=== PATIENT | male | born 1935 | race Caucasian/White ===

== ENCOUNTER 2018-09-02 10:54 | Inpatient (IN) ==
--- NOTE | 2018-09-02 11:10 | EKG Report ---
Test Performed on : 09/02/2018 11:08:04 AM Test Reason : SOB Blood Pressure : / mmHG Vent. Rate : 084 BPM Atrial Rate : 084 BPM P-R Int : 230 ms QRS Dur : 088 ms QT Int : 388 ms P-R-T Axes : 046 055 044 degrees QTc Int : 458 ms Sinus rhythm. with 1st degree AV block. Otherwise normal ECG When compared with ECG of 25-NOV-2017 20:57, No significant change was found Unconfirmed Result
--- NOTE | 2018-09-02 11:46 | Diag Imaging Result Doc PS360 ---
EXAM: CHEST-2 VIEWS HISTORY: SOB TECHNIQUE: Chest two views COMPARISON: 06/02/2018 FINDINGS: Increased AP diameter to the chest. There are increased interstitial markings in the mid and lower left lung. These are somewhat more pronounced than on the prior study. The heart is nonenlarged. No change in the left portacatheter. No pneumothorax. There are small pleural effusions. IMPRESSION: 1.Emphysema 2.Small pleural effusions 3.Likely a combination of fibrosis and a small infiltrate in the mid and lower left lung Electronically signed by Thomas Merino 09/02/2018 11:44 AM
[2018-09-02] MEDS ORDERED: ZITHROMAX PO ONE (11:51)
[2018-09-02] MEDS ORDERED: ROCEPHIN 2 GM in NS 50 ML IV ONE (11:51)
[2018-09-02 12:13] LABS: BASO# 0.01 X1000 (0.0-0.2); BASO% 0.2 % (0.0-0.8); HEMATOCRIT 31.7 % (42.0-52.0); HEMOGLOBIN 10.2 g/dL (14.0-18.0); IMM GRAN# 0.02 X1000 (0.0-0.04); IMM GRAN% 0.4 % (0.0-0.5); LYMPH# 0.72 X1000 (1.2-3.4); LYMPH% 13.2 % (20.5-51.1); MCH 33.2 PG (27-31); MCHC 32.2 g/dL (33-37); MCV 103.3 FL (81-99); NEUT# 4.12 X1000 (1.4-6.5); NEUT% 75.2 % (42.2-75.2); PLT 56 X1000 (130-400); RBC 3.07 XMIL (4.7-6.1); WBC 5.47 X1000 (4.8-10.8)
[2018-09-02 12:18] LABS: INR 1.01; PROTIME 14.2 Seconds (11.0-16.0); PTT 27.8 Seconds (22.3-41.8)
[2018-09-02 12:24] LABS: ALB/GLOB RATIO 1.3; ALBUMIN 3.5 g/dL (3.5-5.0); CALCIUM 8.7 mg/dL (8.8-10.2); CREATININE 1.3 mg/dL (0.7-1.2); POTASSIUM 3.3 mmol/L (3.5-5.1); TOTAL BILIRUBIN 0.3 mg/dL (0.20-1.00); TOTAL PROTEIN 6.3 g/dL (6.3-8.3)
--- NOTE | 2018-09-02 13:54 | PROVIDER DOCUMENTATION ---
This chart was entered by Elizabeth Champagne Scribe, acting as scribe for Andrew Rao MD. HPI-Respiratory General - General Chief Complaint: Shortness of Breath Stated Complaint: SOB Time Seen by Provider: 09/02/18 11:05 Source: patient Allergies/Adverse Reactions: Patient Allergies Allergy/AdvReac Type Severity Reaction Status Date / Time No Known Allergies Allergy Verified 07/19/18 09:02 Home Medications: Home Medication List Medication Instructions Recorded Confirmed Last Taken Type Potassium Chloride E.r. [Klor-Con] 20 meq PO DAILY 07/13/18 07/19/18 07/17/18 History Rivaroxaban [Xarelto] 20 mg PO DAILY 07/13/18 07/19/18 07/17/18 History - History of Present Illness-Resp Nature of Presenting Problem: 83yom with hx colon, cancer, multiple myeloma, PE, L-sided chest tube with effusion c/o sob since last night. He reports he visits Dr. Davis weekly, and visited him on Wednesday for "breathing problems." He denies cough, fever, chills, nausea, vomiting, diarrhea, cp. The patient's daughter and are at bedside. Quality of Pain: reports: none Severity in ED: reports: mild Onset/Duration: reports: last night Timing: reports: still present, constant Cough Quality/Degree: reports: no cough Current Respiratory Medication Therapy: Initiated see nurses note Modifying Factors: improves with: nothing Associated Symptoms: reports: shortness of breath. denies: chest pain/soreness , cough, fever/chills Similar Symptoms Previously?: No Recently seen or treated by another doctor?: No Review of Systems - Adult - REVIEW OF SYSTEMS - ADULT Constitutional: denies: chills, fever Eyes: denies: discharge, dry eyes Ears, Nose, Mouth & Throat: denies: ear discharge, ear pain Cardiovascular: denies: chest pain, palpitations Respiratory: reports: shortness of breath. denies: cough Gastrointestinal: denies: abdominal pain, diarrhea, nausea, vomiting Genitourinary: denies: dysuria, hematuria Musculoskeletal: denies: back pain, muscle aches, muscle weakness Integumentary: reports: no symptoms reported Neurological: denies: dizziness/vertigo, headache/migraines Psychiatric: reports: no symptoms reported Endocrine: reports: no symptoms reported Hematologic/Lymphatic: reports: no symptoms reported Allergic/Immunologic: reports: no symptoms reported All Other Systems: Reviewed and Negative Past History - Adult - PAST MEDICAL HISTORY-ADULT Review of Records: reports: Old Records Reviewed, Nursing Assessment Review, Medications Reviewed Major Childhood Illnesses: reports: denies history Cardiovascular: reports: denies history Respiratory: reports: denies history Gastrointestinal: reports: GERD Obstetrical/Gynecological: reports: denies history Genitourinary: reports: dialysis, kidney disease Musculoskeletal: reports: denies history Neurological: reports: denies history Endocrine/Immune: reports: Lymphoma, other (Myelodysplasia) Other Conditions: reports: denies history - PRIOR SURGERIES/PROCEDURES Surgical/Procedure History: reports: hernia repair - IMMUNIZATION STATUS Childhood Immunizations: See Nurse Assessment Flu Vaccine: See Nurse Assessment - FAMILY HISTORY Family History: reviewed, not pertinent - SOCIAL HISTORY Smoking: other (former) Substance Use: denies Living Situation: family Physical Exam-General - PHYSICAL EXAM-ADULT Initial Vital Signs Reviewed: Yes - CONSTITUTIONAL General Appearance: alert, mild distress - EYES Eyes: PERRL/EOMI, pink conjunctivae - NECK Neck: non-tender, supple - RESPIRATORY Respiratory: decreased breath sounds, other (tachypneic) - CARDIOVASCULAR Cardiovascular: regular rate, rhythm, no murmur - GASTROINTESTINAL (ABDOMEN) Abdominal Exam: non tender, soft - MUSCULOSKELETAL Extremity: normal range of motion, non-tender, normal inspection, no pedal edema - SKIN Integumentary: normal color, warm/dry - NEUROLOGIC Neurologic: grossly normal, no motor/sensory deficits - PSYCHIATRIC Psych/Mental Status: normal mood/affect, normal thought content, normal thought process, oriented x 3 Progress - PLAN OF CARE/RESULTS Progress/Plan/Lab Results: Vital Signs - 8 hr 09/02/18 10:57 Temperature 98.5 F Pulse Rate 88 Respiratory Rate 26 H Blood Pressure 135/81 O2 Sat by Pulse Oximetry 95 Laboratory Results - last 24 hr 09/02/18 09/02/18 09/02/18 11:35 11:35 11:35 WBC 5.47 RBC 3.07 L Hgb 10.2 L Hct 31.7 L MCV 103.3 H MCH 33.2 H MCHC 32.2 L RDW Std Deviation 16.0 H Plt Count 56 L MPV Not Reportable Immature Gran % (Auto) 0.4 Neut % (Auto) 75.2 Lymph % (Auto) 13.2 L [place] % (Auto) 11.0 H Eos % (Auto) 0.0 Baso % (Auto) 0.2 Immature Gran # (Auto) 0.02 Neut # (Auto) 4.12 Lymph # (Auto) 0.72 L [place] # (Auto) 0.60 H Eos # (Auto) 0.00 Baso # (Auto) 0.01 PT INR PTT (Actin FS) Sodium 142 Potassium 3.3 L Chloride 105 Carbon Dioxide 23 L Anion Gap 14 BUN 26 H Creatinine 1.3 H Estimated GFR/1.73 m2 53 BUN/Creatinine Ratio 20 Glucose 74 Calculated Osmolality 287 Calcium 8.7 L Total Bilirubin 0.30 AST 9 L ALT 9 L Alkaline Phosphatase 79 Creatine Kinase 51 Troponin T Cng-E-Ikafmdyltgj Pept 1944 H Total Protein 6.3 Albumin 3.5 Globulin 2.8 Albumin/Globulin Ratio 1.3 09/02/18 09/02/18 11:35 11:35 WBC RBC Hgb Hct MCV MCH MCHC RDW Std Deviation Plt Count MPV Immature Gran % (Auto) Neut % (Auto) Lymph % (Auto) [place] % (Auto) Eos % (Auto) Baso % (Auto) Immature Gran # (Auto) Neut # (Auto) Lymph # (Auto) [place] # (Auto) Eos # (Auto) Baso # (Auto) PT 14.2 INR 1.01 PTT (Actin FS) 27.8 Sodium Potassium Chloride Carbon Dioxide Anion Gap BUN Creatinine Estimated GFR/1.73 m2 BUN/Creatinine Ratio Glucose Calculated Osmolality Calcium Total Bilirubin AST ALT Alkaline Phosphatase Creatine Kinase Troponin T < 0.010 Plr-D-Hozpykvjhyy Pept Total Protein Albumin Globulin Albumin/Globulin Ratio Orders Category Date Time Status Cardiac Monitoring DIRECTED Care 09/02/18 11:02 Active Oxygen Therapy- ED Nursing DIRECTED Care 09/02/18 11:02 Active Saline Loc NOW Care 09/02/18 11:02 Active CHEST-2 VIEWS [RAD] Stat Exams 09/02/18 11:02 Completed BLOOD CULTURE [BLDCUL] Stat Lab 09/02/18 12:40 Results CBC WITH ELECTRONIC DIFF [HEME] Stat Lab 09/02/18 11:35 Completed CK PROFILE [SP CHEM] Stat Lab 09/02/18 11:35 Completed COMPREHENSIVE METABOLIC PANEL [CHEM] Stat Lab 09/02/18 11:35 Completed PRO B-NATRIURETIC PEPTIDE Stat Lab 09/02/18 11:35 Completed PROTIME WITH INR [COAG] Stat Lab 09/02/18 11:35 Completed PTT [COAG] Stat Lab 09/02/18 11:35 Completed TROPONIN T Stat Lab 09/02/18 11:35 Completed Azithromycin [Zithromax] Med 09/02/18 11:51 Discontinued 500 mg PO NOW ONE CefTRIAXONE [Rocephin] 2 gm Med 09/02/18 11:51 Discontinued 0.9% Sodium Chloride Inj [Ns] 50 ml IV NOW CP/SOB/Palp >45 yrs of Age Stat Oth 09/02/18 11:02 Ordered EKG [EKG] Stat Ther 09/02/18 11:02 Draft CXR reveals lingular and LLL infiltrate. given immunosuppression I feel pt best initially treated inpatient. Rasheed'shaylee angulo/ (hospitalist service who agreed: Ginger). Result Diagrams: 09/02/18 11:35 09/02/18 11:35 - EKG 1 Time of EKG reading by physician:: 11:07 EKG Read and Signed by:: Andrew Rao EKG Interpretation (*Must complete 3 of following elements*): Abnormal Rate: 84 Rhythm: Sinus rhythm with 1st degree AV block Coulter: normal ST Wave: normal - XRAY 1 XRAY Study: Chest Impression: Abnormal (FINDINGS: Increased AP diameter to the chest. There are increased interstitial markings in the mid and lower left lung. These are somewhat more pronounced than on the prior study. The heart is nonenlarged. No change in the left portacatheter. No pneumothorax. There are small pleural effusions. IMPRESSION: 1.Emphysema 2.Small pleural effusions 3.Likely a combination of fibrosis and a small infiltrate in the mid and lower left lung) Departure - Departure Date of Disposition Decision: 09/02/18 Time of Disposition Decision: 13:54 DIAGNOSIS: Pneumonia Disposition: ADMITTED INPATIENT 09 Certified Medical Emergency: Emergent Condition: Stable Additional Freetext Instructions: ED Follow Up Instructions: You have been treated by a care provider in the Emergency Department. These instructions are being provided to you so you can have an understanding of how to care for yourself upon discharge. Upon discharge from the Emergency Department, you are responsible for making arrangements for follow-up care by a physician of your choice. Take all prescribed medications as directed. Return to the Emergency Department immediately for any new or worsening symptoms. You may call the Physician Referral phone number at [phone] to obtain a list of Physicians who are taking new patients. Referrals and Follow-Ups: Brayden Juarez DO [Primary Care Provider] - - Critical Care Note This patient required my direct & personal management of CC.: No Attestation - Physician/ MARA Attestation Patient care was provided by Advanced Practice Provider:: No The physician spent face to face time with patient:: Yes Advanced Practice Provider documentation review:: Supervising physician onsite and consulted in the evaluation and care of this patient. The physician did have a face to face encounter with the patient. This chart was documented by the indicated scribe, (Elizabeth Champagne, Yumiko) and accurately reflects the services I performed and decisions made by me, Andrew Rao MD, as attested by the provider's signature.
[2018-09-02] MEDS ORDERED: LASIX IV ONE (15:40)
[2018-09-02] MEDS ORDERED: TYLENOL PO PRN (16:57)
[2018-09-02] MEDS ORDERED: ZOFRAN IV PRN (16:57)
[2018-09-02 17:02] LABS: BILIRUBIN URINE NEGATIVE (NEGATIVE); BLOOD URINE NEGATIVE (NEGATIVE); COLOR YELLOW; GLUCOSE URINE NEGATIVE (NEGATIVE); KETONE URINE NEGATIVE (NEGATIVE); LEUKOCYTES URINE NEGATIVE (NEGATIVE); NITRITE URINE NEGATIVE (NEGATIVE); PROTEIN URINE NEGATIVE (NEGATIVE); SP GRAVITY URINE 1.007; TURBIDITY URINE CLEAR (CLEAR); UR EPITHELIAL CELLS <10 /HPF (<10); URINE BACTERIA NEGATIVE /HPF; URINE RBC <10 /HPF (<10); URINE SOURCE CLEAN CATCH; URINE WBC <10 /HPF (<10); UROBILINOGEN URINE NORMAL (NORMAL)
[2018-09-02] MEDS ORDERED: LENALIDOMIDE 5 MG PO SCH (17:30)
[2018-09-02 18:16] LABS: URINE SOURCE CLEAN CATCH
[2018-09-02 18:32] LABS: BILIRUBIN URINE NEGATIVE (NEGATIVE); BLOOD URINE NEGATIVE (NEGATIVE); COLOR STRAW; GLUCOSE URINE NEGATIVE (NEGATIVE); KETONE URINE NEGATIVE (NEGATIVE); LEUKOCYTES URINE NEGATIVE (NEGATIVE); NITRITE URINE NEGATIVE (NEGATIVE); PROTEIN URINE NEGATIVE (NEGATIVE); TURBIDITY URINE CLEAR (CLEAR); UROBILINOGEN URINE NORMAL (NORMAL)
[2018-09-02 18:34] LABS: UR EPITHELIAL CELLS <10 /HPF (<10); URINE BACTERIA NEGATIVE /HPF; URINE RBC <10 /HPF (<10); URINE WBC <10 /HPF (<10)
--- NOTE | 2018-09-02 20:15 | HISTORY AND PHYSICAL ---
PRIMARY CARE PHYSICIAN: Brayden Juarez DO. The patient also sees Dr. Khalil and Dr. Kenny. CHIEF COMPLAINT: Shortness of breath. HISTORY OF PRESENT ILLNESS: Mr. Bender is an 83-year-old, male, with a past medical history of multiple myeloma, currently under treatment with Dr. Khalil. He also has a history of colon cancer and myelodysplastic syndrome, as well as recurrent pleural effusions. He presented to the emergency room today with complaints of increasing shortness of breath over the past couple days. He saw Dr. Khalil in his office on Wednesday and then developed increasing shortness of breath and nonproductive cough. He denies any other respiratory symptoms besides nonproductive cough and shortness of breath. He denies any known fever. He denies chest pain, abdominal pain, nausea, vomiting, constipation, diarrhea. He denies any dysuria , hematemesis, hematochezia or melena. He states he has had some mild swelling of his lower extremities. Upon evaluation in the emergency room, his chest x-ray revealed small pleural effusions and a combination of fibrosis and small infiltrate in the mid and lower left lung as well as emphysema. His lab data revealed acute on chronic kidney injury with BUN 26, creatinine 1.3 , elevated proBNP at 1944. He has no known heart failure. Last echocardiogram was normal, done in July 2017. Mr. Bender will be admitted here at [facility] for further workup and evaluation regarding pleural effusion and possible pneumonia. PAST MEDICAL HISTORY: 1. Multiple myeloma. 2. History of colon cancer. 3. Myelodysplastic syndrome. 4. GERD. 5. Pernicious anemia. 6. Chronic kidney disease. 7. Prostate cancer. PAST SURGICAL HISTORY: 1. Left Pleur-Evac. 2. Cataract surgery. 3. Left hand surgery. 4. Colon resection. 5. Prostate. 6. Inguinal hernia repair. 7. Neck surgery. SOCIAL HISTORY: A remote smoker. He quit 20+ years ago. FAMILY HISTORY: Two brothers with prostate cancer. ALLERGIES: No known drug allergies. HOME MEDICATIONS: Waiting to be reconciled. PHYSICAL EXAMINATION: VITAL SIGNS: Temperature 98.5, heart rate 88, respiratory rate 26, blood pressure 135/81, and O2 saturation 95% on room air. GENERAL: This is a chronically ill-appearing, 83-year-old, male. He is in no acute distress. He answers questions appropriately. NEURO: He is alert and oriented. He is without focal deficits. Strength is equal bilaterally. HEENT: His head is atraumatic, normocephalic. Pupils are equal, round, reactive to light. Oral mucosa is mildly dry. NECK: Trachea is midline. There is no JVD. CHEST: Lung sounds with crackles at the bases. Respirations are unlabored. CARDIOVASCULAR: Rate and rhythm are regular. S1-S2 is noted. ABDOMEN: Soft and nontender. Bowel sounds are positive. EXTREMITIES: There is mild pedal edema bilaterally. Capillary refill is brisk. Pedal pulses 1+. SKIN: Warm, dry, intact. LABS: WBC 5.4, hemoglobin 10.2, hematocrit 31.7, platelets 56. Sodium 142, potassium 3.3, BUN 26, creatinine 1.3, calcium 8.7, AST 9, ALT 9. Troponin less than 0.01, proBNP 1944. IMAGING: Chest x-ray reveals emphysema, small pleural effusions, likely a combination of fibrosis and small infiltrate in the mid and lower left lung. EKG reveals sinus rhythm with first degree AV block. ASSESSMENT AND PLAN: 1. Possible pneumonia with recurrent small pleural effusion. This patient presented with shortness of breath. No acute respiratory distress. We will treat with Rocephin and azithromycin. He does have a small pleural effusion and appears mildly fluid volume overloaded. We will do one dose of Lasix for now and reevaluate need. We will do bronchodilator therapy and repeat chest x-ray in the morning. 2. Acute on chronic kidney injury. He is close to baseline. We will monitor fluid volume status closely and orders serial CMP. 3. History of colon cancer, aware. 4. Multiple myeloma. He is under current treatment with Dr. Khalil. We will consult Dr. Khalil. 5. Gastroesophageal reflux disease. Protonix. 6. Pernicious anemia, aware. 7. Deep venous thrombosis prophylaxis. He is chronically anticoagulated with Xarelto secondary to DVT history. Once medications are reconciled and we get his correct dose,and we will resume treatment. 8. Further recommendation evaluation to follow. Dictated by JOSE EDUARDO Porter for Jarrell Irwin MD Patient seen and examined by me face to face, all the laboratory, images and vitals signs were reviewed, patient presented to the emergency department with Shortness of breath for at least 3 -4 days, he has pleural effusion and possible pneumonia, decreased breath sounds at the bases with some rhonchi, will receive antibiotics, breathing treatment, O2, one dose of Lasix, ,the patient will be placed on telemetry, close monitoring, agree with the TIMERS INSPECTOR's assessment and plan, aJrrell Ortiz MD. cc: MD Sean Barclay MD [facility]. Boyle, MD [facility] INSANEOmid
[2018-09-02] MEDS: PROTONIX IV SCH (21:16)
[2018-09-02] MEDS: LIPITOR PO SCH (21:16)
[2018-09-02] MEDS: XARELTO PO SCH (21:16)
[2018-09-02] MEDS: XOPENEX NEB INH SCH (21:38)
[2018-09-03] MEDS: XOPENEX NEB INH SCH ×5 (03:40→21:53)
[2018-09-03 06:56] LABS: EOS# 0.02 X1000 (0.0-0.7); EOS% 0.7 % (0.0-10.0); HEMATOCRIT 26.8 % (42.0-52.0); HEMOGLOBIN 8.7 g/dL (14.0-18.0); LYMPH# 0.74 X1000 (1.2-3.4); LYMPH% 27.1 % (20.5-51.1); MCH 33.5 PG (27-31); MCHC 32.5 g/dL (33-37); MCV 103.1 FL (81-99); MONO# 0.36 X1000 (0.11-0.59); MONO% 13.2 % (1.7-9.3); NEUT# 1.61 X1000 (1.4-6.5); PLT 45 X1000 (130-400); RDW 16.2 % (11.5-14.5); WBC 2.73 X1000 (4.8-10.8)
[2018-09-03 07:10] LABS: ALBUMIN 2.7 g/dL (3.5-5.0); CALCIUM 8.3 mg/dL (8.8-10.2); CREATININE 1.5 mg/dL (0.7-1.2); POTASSIUM 3.1 mmol/L (3.5-5.1); TOTAL BILIRUBIN 0.29 mg/dL (0.20-1.00); TOTAL PROTEIN 5.3 g/dL (6.3-8.3)
[2018-09-03 07:20] LABS: LYMPHS 26 % (21-51); MONO 18 % (1-9); SEGS 56 % (42-75)
[2018-09-03 07:30] LABS: TSH 3.33 uIUmL (0.27-4.20)
--- NOTE | 2018-09-03 08:33 | Diag Imaging Result Doc PS360 ---
CHEST-PORTABLE - 09/03/2018 INDICATION: Pneumonia COMPARISON: 09/02/2018 FINDINGS: Stable left chest port. Heart size remains normal. Lung volumes are lower. Stable to slight worsening bibasilar pleural effusions. Grossly stable mild patchy infiltrates or areas of scarring in the lung bases bilaterally, particularly on the left side where there is clearly a lot of pulmonary scarring. IMPRESSION: Slight worsening in the small pleural effusions and faint bibasilar infiltrates. Electronically signed by Silvano Goldman 09/03/2018 8:31 AM
[2018-09-03] MEDS: KLOR-CON PO SCH (08:50)
[2018-09-03] MEDS: XARELTO PO SCH ×2 (08:50→14:46)
[2018-09-03] MEDS ORDERED: KLOR-CON PO ONE (08:53)
[2018-09-03] MEDS: ZITHROMAX 500 MG/NS 500 MG/250 ML IVPB IV SCH (09:23)
[2018-09-03] MEDS: NS NEB INH SCH ×2 (09:54→15:33)
[2018-09-03] MEDS: ROCEPHIN 1 GM in NS 50 ML IV SCH (11:48)
--- NOTE | 2018-09-03 11:54 | HEMO/ONC CONSULTATION ---
DATE: 09/03/2018 CONSULTATION REQUESTED BY: Hospitalist Service. REASON FOR CONSULTATION: Multiple myeloma, patient known. HISTORY OF PRESENT ILLNESS: Mr. Bender is an 83-year-old, male, who is known to us as Dr. Khalil is currently treating him for multiple myeloma, who has been admitted to the hospital with pneumonia/pleural effusions. The patient was already having some dyspnea over the week, and it has worsened, making him present to the emergency department. A chest x-ray has revealed small pleural effusions and an infiltrate in his left mid lung. Patient is getting Kyprolis, dexamethasone and Revlimid. He just recently completed his fourteenth cycle of Kyprolis on 09/01/2018. He is taking Revlimid 5 mg every other day. His most recent bone marrow biopsy has shown stable to improved plasma cell population. The patient also getting red blood cell support with Aranesp. He is complaining of some muscle spasms, but otherwise is feeling well. He does have a history of a left lower extremity DVT back in February 2018. He is currently taking Xarelto. PAST MEDICAL HISTORY: 1. Multiple myeloma. 2. Myelodysplastic syndrome, exacerbated by chronic renal insufficiency. 3. Stage II colon cancer. Adenocarcinoma. No current evidence of disease. 4. Gastroesophageal reflux disease. 5. Chronic kidney disease. 6. History of prostate cancer. PAST SURGICAL HISTORY: 1. Left Pleur-evac placement. 2. Cataract surgery. 3. Left hand surgery. 4. Colon resection. 5. Prostate biopsy. 6. Inguinal hernia repair. 7. Previous neck surgery. SOCIAL HISTORY: Patient quit smoking 20+ years ago. He denies any current tobacco, alcohol or illicit drug use. FAMILY HISTORY: Has 2 brothers who have a history of prostate cancer. All else is noncontributory. REVIEW OF SYSTEMS: Twelve point review of systems has been completed and is negative, except for as expressed in the HPI. PHYSICAL EXAMINATION: Vital Signs: Temperature 98.2 degrees, heart rate 72, respirations 18, blood pressure 116/60, O2 saturation 95% on room air. General: This is a male lying in a hospital bed. He has a daughter at bedside. He is in no acute distress at this time. Head: Head normocephalic, atraumatic. Eyes: Pupils equal, round, reactive. Ears, nose, throat, neck: Mouth: Oral mucosa appears to be normal. Gross auditory acuity is diminished. Cardiovascular: S1, S2 heard. No murmurs, gallops, rubs appreciated. Respiratory: Chest is clear. No respiratory effort. There is really no rales or rhonchi noted. Gastrointestinal: Abdomen is soft. Positive bowel sounds. Musculoskeletal: No bony abnormalities. Extremities: Patient does have some trace bilateral extremity edema noted. Neurologic: Patient is alert and oriented with no focal motor deficits noted at this time. LABS AND STUDIES: White blood cells 2.73, hemoglobin 8.7, platelet count 45. Sodium 140, potassium 3.1, chloride 103, CO2 26. BUN 25, creatinine 1.5, glucose 96. Chest x-ray shows small pleural effusions and faint bibasilar infiltrates. ASSESSMENT AND PLAN: 1. Multiple myeloma. Patient has now completed cycle 14 of Kyprolis /dexamethasone. Patient is taking 5 mg of Revlimid every other day. Recommend holding Revlimid at this time given the patient's acute issues. We will have the patient follow up and discuss reinitiating treatment once he is better. 2. Pneumonia. Continue current management which includes intravenous antibiotics with azithromycin and ceftriaxone. Oxygen support as needed. Nebulizer treatments. 3. Deep vein thrombosis, left lower extremity. Patient was diagnosed with a deep vein thrombosis back in February 2018. He has been on Xarelto 20 mg since that time. He has now completed close to 6 months of therapy. We recommend that we decrease the Xarelto dose down to 10 mg daily. He will need to continue Xarelto while he is in the hospital. 4. Chronic kidney disease. The patient's baseline creatinine is around 1.3. He is close to his baseline at this time. Continue to monitor. 5. History of colon cancer. Aware. No evidence of recurrence at this time. 6. Leg cramps. Potassium is low. Replete per primary team. We will make sure that his other electrolytes are checked and then repleted. Thank you for consulting us on Mr. Bender while he is here at [facility]. I will continue to follow him and adjust our treatment plan per his hospital course. Dictated by DERIC Hobbs for Sean Khalil MD cc: Sean Khalil MD
[2018-09-03] MEDS ORDERED: MAGNESIUM SULFATE 2 GM/S.W.I. 2 GM/50 ML IVPB IV ONE (13:05)
--- NOTE | 2018-09-03 14:14 | PROGRESS NOTE ---
DATE: 09/03/2018 SUBJECTIVE: The patient is lying comfortably in bed. Occupational Therapy and Physical Therapy have been consulted already. He is not complaining of chest pain, mild shortness of breath, some leg cramps. He has history of DVT as well in left lower extremity, and Hematology/Oncology Department has decreased the dose of Xarelto from 20 mg to 10 mg because it looks like he completed the 6 months of therapy already. Admitted yesterday due to shortness of breath which is happening mostly with physical activity. X-ray showed mild pleural effusion bilaterally located at the bases. He received Lasix yesterday, and also he received Lasix at home p.o. the day prior to admission. He started requiring oxygen, and the oxygen saturation is 96% on room air. His magnesium level is also low, and I will replace it. OBJECTIVE: Vital signs: Temperature is 98.4, pulse 87, respiratory rate 24, blood pressure 130/61, oxygen saturation 96% on room air. HEENT: Head is atraumatic and normocephalic, PERRLA. Neck: Supple. No JVD. No masses. Central trachea. Chest: Decreased breath sounds at the bases with some crepitans on the left side, some rales as well. Abdomen: Soft, nontender and nondistended. No hepatosplenomegaly. Extremities: Trace pedal edema. No clubbing. No cyanosis. Neurologic: The patient is alert and oriented x3. No focal deficits. DIAGNOSTIC DATA: WBC is 2.7, hemoglobin 8.7, hematocrit 26.8, platelets 45. Sodium is 140, potassium 3.1, chloride 103, bicarbonate 26, BUN is 25, creatinine 1.5, glucose 96, calcium 8.3, magnesium 1.4. ASSESSMENT AND PLAN: 1. Shortness of breath with questionable pneumonia on the left side with recurrent small pleural effusion. This patient received a dose of Lasix yesterday IV, and also he received as needed Lasix treatment at home the day before admission. His creatinine increased a little bit compared with his baseline. Today he is not having shortness of breath, and he is on room air. Oxygen saturation is stable. We will continue with antibiotics. We will continue with breathing treatment as well. 2. Acute on chronic kidney injury, mild. I will hold his Lasix treatment today, and I will reevaluate this in the morning. 3. History of colon cancer. Aware. Followed by Dr. Khalil. 4. Multiple myeloma. This patient has now completed cycle 14 of treatment, and also this patient is taking 5 mg of Revlimid every other day that now has been on hold due to this patient's acute problems. We will continue to monitor for now. 5. Possible left lower lobe pneumonia and/or pulmonary scarring. Continue with antibiotics. 6. Gastroesophageal reflux disease. Continue with Protonix. 7. Left lower extremity deep venous thrombosis, already treated with Xarelto 20 mg p.o. daily and has been decreased to 10 because it looks like he completed treatment already. 8. Hypokalemia. I will replace. 9. Hypomagnesemia. I will replace the magnesium as well. cc: Jarrell Irwin MD
[2018-09-03] MEDS ORDERED: XARELTO PO SCH (15:00)
[2018-09-03] MEDS: PROTONIX IV SCH (17:24)
[2018-09-03] MEDS: LIPITOR PO SCH (22:02)
[2018-09-04] MEDS: XOPENEX NEB INH SCH ×4 (03:10→22:07)
[2018-09-04 06:38] LABS: EOS# 0.04 X1000 (0.0-0.7); EOS% 1.6 % (0.0-10.0); HEMATOCRIT 27.5 % (42.0-52.0); HEMOGLOBIN 8.9 g/dL (14.0-18.0); LYMPH# 0.77 X1000 (1.2-3.4); MCH 33.2 PG (27-31); MCHC 32.4 g/dL (33-37); MCV 102.6 FL (81-99); MONO# 0.38 X1000 (0.11-0.59); MONO% 14.8 % (1.7-9.3); NEUT# 1.38 X1000 (1.4-6.5); NEUT% 53.6 % (42.2-75.2); PLT 43 X1000 (130-400); RBC 2.68 XMIL (4.7-6.1); RDW 16.2 % (11.5-14.5); WBC 2.57 X1000 (4.8-10.8)
[2018-09-04 06:50] LABS: ALBUMIN 2.5 g/dL (3.5-5.0); CALCIUM 7.9 mg/dL (8.8-10.2); CREATININE 1.2 mg/dL (0.7-1.2); POTASSIUM 3.3 mmol/L (3.5-5.1); TOTAL BILIRUBIN 0.44 mg/dL (0.20-1.00); TOTAL PROTEIN 5.1 g/dL (6.3-8.3)
[2018-09-04] MEDS ORDERED: LASIX IV ONE ×3 (07:16→18:00)
--- NOTE | 2018-09-04 07:22 | Diag Imaging Result Doc PS360 ---
CHEST-PORTABLE - 09/04/2018 INDICATION: dyspnea COMPARISON: 09/03/2018 FINDINGS: Stable left chest port. Stable bilateral central and basilar infiltrates. Stable small pleural effusions. Stable volume loss of the left lung. Heart size remains normal. IMPRESSION: No change from prior. Electronically signed by Silvano Goldman 09/04/2018 7:20 AM
[2018-09-04] MEDS: PERIDEX MT SCH ×2 (08:09→22:41)
[2018-09-04] MEDS: KLOR-CON PO SCH (08:09)
[2018-09-04] MEDS: ZITHROMAX 500 MG/NS 500 MG/250 ML IVPB IV SCH (08:10)
[2018-09-04] MEDS ORDERED: KLOR-CON PO ONE (09:10)
--- NOTE | 2018-09-04 10:05 | Diag Imaging Result Doc PS360 ---
CHEST-2 VIEWS - 09/04/2018 9:43 AM INDICATION: dyspnea COMPARISON: 5:48 AM FINDINGS: There is no change from prior. IMPRESSION: No change from prior. Electronically signed by Silvano Goldman 09/04/2018 10:02 AM
--- NOTE | 2018-09-04 10:06 | Diag Imaging Result Doc PS360 ---
LAT. DECUBITUS VIEW-LEFT - 09/04/2018 INDICATION: eval effusion TECHNIQUE: COMPARISON: Chest x-rays from earlier today FINDINGS: There is left-sided pleural thickening stable from prior exams. No free flowing pleural effusion. IMPRESSION: No free flowing pleural effusion. Electronically signed by Silvano Goldman 09/04/2018 10:04 AM
--- NOTE | 2018-09-04 10:07 | Diag Imaging Result Doc PS360 ---
LAT. DECUBITUS VIEW-RIGHT - 09/04/2018 INDICATION: eval effusion TECHNIQUE: COMPARISON: None FINDINGS: There is a small free-flowing right pleural effusion. This measures about 3 cm in depth maximally. IMPRESSION: Small free-flowing right pleural effusion. Electronically signed by Silvano Goldman 09/04/2018 10:05 AM
[2018-09-04] MEDS: ROCEPHIN 1 GM in NS 50 ML IV SCH (12:27)
--- NOTE | 2018-09-04 13:55 | PROGRESS NOTE ---
DATE: 09/04/2018 SUBJECTIVE: This patient is still complaining of generalized weakness, some abdominal pain, some acid reflux, and some leg cramps. Family members at the bedside. Pulmonary Department has been consulted. We did multiple x-rays to evaluate his pleural effusion. He has receive Lasix IV today. He is not having shortness of breath at this moment but he feels really tired. OBJECTIVE: Vital Signs: Temperature 97.5 degrees, pulse 78, respiratory rate 24, blood pressure 110/66, oxygen saturation 96 on room air. HEENT: Head normocephalic. No trauma. PERRLA. Neck: Supple. No JVD. No masses. Central trachea. Chest: Decreased breath sounds at the bases with crepitations bilaterally and some crackles on the left side. Abdomen: Soft, nontender, nondistended. No hepatosplenomegaly. Extremities: Trace pedal edema. No clubbing. No cyanosis. Neurological: The patient is alert and oriented x3. No focal deficits. LABORATORY: WBC 2.5, hemoglobin 8.9, hematocrit 27.5, platelets 43,000. Sodium 138, potassium 3.3, chloride 102, bicarbonate 24, BUN 14, creatinine 1.2, glucose 99, calcium 7.9, albumin 2.5. ASSESSMENT AND PLAN: 1. Shortness of breath with questionable pneumonia on the left side, recurrent pleural effusion. The patient received a dose of IV Lasix x2. He is not complaining too much of shortness of breath but he feels tired. He has been coughing on and off. 2. Acute on chronic kidney injury, mild. It looks like this is his baseline. We will continue to monitor. Probably tomorrow the BUN and creatinine will increased due to the Lasix treatment. 3. History of colon cancer. Aware. Followed by Dr. Khalil. 4. Multiple myeloma. This patient has now completed cycle 14 of treatment and also this patient is taking 5 mg of Revlimid every other day. That now has been on hold due to this patient's acute problems. Will continue to monitor. 5. Possible left lower lobe pneumonia and/or pulmonary scarring. Continue with antibiotics. 6. Hypokalemia. He already received a dose of potassium chloride in the morning and I will repeated in the afternoon. Probably the potassium has been low due to the furosemide treatment. 7. Gastroesophageal reflux disease. Continue with PPIs. Since this patient has been getting some acid reflux, I will increase it to twice a day. 8. Left lower extremity deep vein thrombosis. Already treated with Xarelto 20 mg p.o. daily. That has been decreased to 10 mg p.o. daily because it looks like this patient has already completed treatment. These changes have been done by Hematology/Oncology Department. We will continue to monitor. 9. Thrombocytopenia, which is chronic. Stable. Will monitor. 10. Bilateral lower extremity cramps. Likely secondary to hypokalemia. I will replace the potassium. 11. Generalized weakness. Continue physical therapy. cc: Jarrell Irwin MD
[2018-09-04] MEDS: XARELTO PO SCH (15:02)
[2018-09-04] MEDS: PROTONIX IV SCH (15:05)
[2018-09-04] MEDS: NS NEB INH SCH (15:41)
[2018-09-04] MEDS ORDERED: KLOR-CON PO SCH (17:00)
--- NOTE | 2018-09-04 20:40 | PULMONOLOGY CONSULTATION ---
DATE: 09/04/2018 REQUESTING PHYSICIAN: Dr. Miles. REASON FOR CONSULTATION: Shortness of breath and pulmonary edema. HISTORY OF PRESENT ILLNESS: Mr. Bender is an 83-year-old white male with history of asbestos exposure, multiple myeloma, myelodysplastic syndrome, immunoglobulin deficiency, with a complex left-sided pleural effusion which required a PleurX catheter for drainage with subsequent resolution. The patient developed a right-sided pleural effusion and underwent a thoracentesis in July 2017 which was transudative in character. He developed a clot in his left leg and a V/Q scan in February 2018 was consistent with a pulmonary embolism, and he has been on Xarelto since that time. He has had chronic shortness of breath and fatigue that has significantly worsened on Wednesday and he was admitted to the hospital for additional evaluation and treatment. Chest x-ray reveals increase in basilar infiltrates/effusions. The patient reports that he had an immunoglobulin infusion on . He reports some improvement in his symptoms. He denies fevers or chills. He has no significant sputum production. PAST MEDICAL HISTORY: Problem list: 1. Multiple myeloma as per above. 2. Myelodysplastic syndrome. 3. Chronic renal insufficiency. 4. Left-sided pleural effusion as per above requiring a PleurX catheter. 5. Transudative pleural effusion on the right as per above. 6. History of prostate cancer. 7. Stage II colon cancer status post resection without evidence of recurrence. 8. Left hand surgery. 9. Prostate biopsy. 10. Inguinal hernia repair. 11. Previous neck surgery. SOCIAL HISTORY: The patient has limited tobacco history. He smoked 3/4 of pack for 10 years. 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 No exposure to tuberculosis. FAMILY HISTORY: Positive for Alzheimer disease, heart disease. PHYSICAL EXAMINATION: General: Reveals a well-developed, well-nourished white male resting comfortably in his bed and in no distress. Vital Signs: BP 103/59, heart rate 78, respiratory rate 20, oxygen saturation 95% on room air. HEENT: Pupils are equal and reactive. Oropharynx is clear. Neck: Supple. Chest: Reveals mild prolonged expiratory phase. He has 1+ presacral edema. Cardiac: S1, S2. Abdomen: Soft. Extremities: Without edema. Neurologic: Cranial nerves 2-12 are grossly intact. LABORATORIES: Decubitus x-ray on the right reveals a small to moderate effusion which appears to be free flowing to the mid thorax measuring approximately 3 cm. No effusion on the left. White blood count 2.57, hemoglobin 8.9, platelet count 43,000. Chemistry: Sodium 138, potassium 3.3, chloride 102, bicarbonate 24, BUN 14, creatinine 1.2. IMPRESSION: An 83-year-old with right-sided pleural effusion, dyspnea, fatigue, immunoglobulin deficiency status post recent replacement as outlined in the HPI, multiple myeloma, with myelodysplastic syndrome. The patient likely has adhesions in the left hemithorax preventing an effusion formation. He does develop effusions on the right side which were previously transudative in nature. I would recommend an attempt at diuresis and an echocardiogram to re- evaluate his pulmonary arterial pressures along with his left ventricular function. His current exacerbation may have been triggered by the immunoglobulin replacement. The patient's nursing orders currently recommend encourage patient to push p.o. liquids. This has been discontinued. He did recently have an immunoglobulin infusion and a post infusion level will be checked. RECOMMENDATIONS: 1. Additional Lasix today as tolerated with followup BUN and creatinine. 2. Check an echocardiogram. 3. Continue anticoagulation for history of deep vein thrombosis and pulmonary emboli. 4. Discontinue antibiotics with clearing of x-ray. cc: Mitchell Kenny MD
[2018-09-04] MEDS: LIPITOR PO SCH (22:41)
[2018-09-05] MEDS: PROTONIX IV SCH ×2 (01:41→15:37)
[2018-09-05] MEDS: XOPENEX NEB INH SCH ×4 (03:57→21:40)
[2018-09-05 06:30] LABS: EOS# 0.13 X1000 (0.0-0.7); HEMATOCRIT 31.7 % (42.0-52.0); HEMOGLOBIN 10.2 g/dL (14.0-18.0); LYMPH# 1.15 X1000 (1.2-3.4); LYMPH% 35.7 % (20.5-51.1); MCH 33.1 PG (27-31); MCHC 32.2 g/dL (33-37); MCV 102.9 FL (81-99); MONO# 0.49 X1000 (0.11-0.59); MONO% 15.2 % (1.7-9.3); NEUT# 1.45 X1000 (1.4-6.5); NEUT% 45.1 % (42.2-75.2); PLT 53 X1000 (130-400); RBC 3.08 XMIL (4.7-6.1); RDW 15.9 % (11.5-14.5); WBC 3.22 X1000 (4.8-10.8)
[2018-09-05 06:47] LABS: CALCIUM 8.3 mg/dL (8.8-10.2); CREATININE 1.3 mg/dL (0.7-1.2); POTASSIUM 3.9 mmol/L (3.5-5.1); TOTAL BILIRUBIN 0.34 mg/dL (0.20-1.00); TOTAL PROTEIN 6.1 g/dL (6.3-8.3)
--- NOTE | 2018-09-05 06:48 | Diag Imaging Result Doc PS360 ---
EXAM: CHEST-PORTABLE HISTORY: abnormal exam TECHNIQUE: Portable chest single view COMPARISON: 09/04/2018 FINDINGS: No change in the left-sided portacatheter. There is volume loss to the left hemithorax similar to the prior exam. Mild increased interstitial markings in the lower left lung and lower right lung. The markings in the right lung base are slightly more pronounced. Small right pleural effusion with left pleural thickening. No cardiomegaly. IMPRESSION: Mild worsening in the right-sided infiltrates Electronically signed by Thomas Merino 09/05/2018 6:46 AM
[2018-09-05 06:52] LABS: MAGNESIUM 1.9 mg/dL (1.5-2.7); PHOSPHORUS 3.2 mg/dL (2.7-4.5)
[2018-09-05] MEDS: PERIDEX MT SCH ×2 (10:23→21:58)
[2018-09-05] MEDS: KLOR-CON PO SCH (10:23)
[2018-09-05] MEDS: ZITHROMAX 500 MG/NS 500 MG/250 ML IVPB IV SCH (10:26)
[2018-09-05] MEDS: ROCEPHIN 1 GM in NS 50 ML IV SCH (12:15)
--- NOTE | 2018-09-05 13:06 | PROGRESS NOTE ---
DATE: 09/05/2018 SUBJECTIVE: This patient states that he is feeling better. He is still complaining of mild shortness of breath with physical activity. X-ray showed a mild worsening in the right-sided infiltrates. Echocardiogram has been requested, but is pending at this moment. Will continue with the same management. Pulmonary department on board. Probably this patient can be discharged in the next 24 to 48 hours. OBJECTIVE: Vital Signs: Temperature 97.6 degrees, pulse 77, respiratory rate 24, blood pressure 111/66, oxygen saturation 95% on room air. HEENT: Head normocephalic. No trauma. PERRLA. Neck: Supple. No JVD. No masses. Central trachea. Chest: Decreased breath sounds at the bases with some crepitus bilaterally at the bases as well. Abdomen: Soft, nontender, nondistended. No hepatosplenomegaly. Extremities: Trace pedal edema. No clubbing. No cyanosis. Neurological: The patient is alert and oriented x3. No focal deficits. LABORATORY DATA: WBC 3.2, hemoglobin 10.2, hematocrit 31.7, platelets 53,000. Sodium 136, potassium 3.9, chloride 98, bicarbonate 25, BUN 13, creatinine 1.3, glucose 113, calcium 8.3, albumin 6. ASSESSMENT AND PLAN: 1. Shortness of breath with questionable pneumonia at the bases, recurrent pleural effusion. The patient received a dose of intravenous Lasix yesterday. He is not complaining of shortness of breath today, but he feels a little bit tired. Mostly the shortness of breath is with some physical activity, but compared with admission, he is feeling better. 2. Acute on chronic kidney injury, mild. It looks like this is his baseline. Will continue to monitor. 3. History of colon cancer, aware. Followed by Dr. Khalil. 4. Multiple myeloma. This patient has now completed cycle 14 of treatment and also this patient is taking 5 mg of Revlimid every other day that now has been stopped due to this patient's acute problems. 5. Possible bilateral lower lobe pneumonia and/or pulmonary scarring. Continue with antibiotics. Once the x-ray is clear, will stop the antibiotics. 6. Hypokalemia, resolved. 7. Gastroesophageal reflux disease. Continue with proton pump inhibitors. 8. Left lower extremity deep venous thrombosis. He already has been treated with Xarelto 20 mg p.o. daily and that has been decreased to 10 mg p.o. daily because it looks like he already completed his treatment. Dose changes have been done by Hematology/Oncology Department. Will continue to monitor and follow with recommendations. 9. Thrombocytopenia. This is chronic, stable. Will monitor. 10. Bilateral lower extremity cramps likely secondary to hypokalemia. Today, he is not complaining of any abnormality at the level of the lower extremities. Will continue to monitor. 11. Generalized weakness. Continue physical therapy. 12. Immunoglobulin deficiency. Pending immunoglobulin results. cc: Jarrell Irwin MD
[2018-09-05] MEDS: SODIUM CHLORIDE 0.9% INJ SCH (15:37)
[2018-09-05] MEDS: XARELTO PO SCH (15:37)
--- NOTE | 2018-09-05 16:22 | ECHO REPORT ---
ORDER DATE: 09/05/2018 INTERPRETING PHYSICIAN: Dr. Meyers REQUESTING PHYSICIAN: CLINICAL INDICATIONS: This is an 83-year-old male with multiple myeloma, pleural effusion, colon cancer, chemotherapy. M-MODE MEASUREMENTS: Right ventricle: cm. Left ventricle end diastole: 4.1 cm. Left ventricle end systole: 3.1 cm. Posterior wall: 1.1 cm. Interventricular septum: 1.1 cm. Left atrium: 4.0 cm. Aortic root: 3.7 cm. SUMMARY OF 2-DIMENSIONAL IMAGIN. The study is difficult. 2. Left ventricular systolic function appears to be at the lower limits of normal. Ejection fraction is estimated at 56%. No definite wall motion abnormality is noted; however, the study is difficult. 3. Inferior vena cava is not dilated. 4. Tricuspid valve showed mild degree of regurgitation. 5. Pulmonary pressure appears to be 29 mmHg. 6. Pulmonic valve looks normal. Color flow mapping is unremarkable. 7. Mitral valve shows mild degree of regurgitation. 8. Pulse wave Doppler of mitral inflow shows reversal of the E and the A ratio, the ratio is 0.5. 9. Tissue Doppler of septal and lateral mitral annulus averages 6.5 cm. 10.There is a question of impaired left ventricular relaxation. 11.Pulmonary venous flow is normal. 12.Aortic valve shows mild degree of thickening of the cusps with normal opening. There is no stenosis. There is no regurgitation. 13.There is no pericardial effusion, mass, or thrombus. 14.The atria appear to be normal. Clinical correlation is recommended. cc: MD Mitchell Rodriguez MD
--- NOTE | 2018-09-05 18:24 | Diag Imaging Result Doc PS360 ---
EXAM: CT MAXILLOFACIAL(SINUS) W/O CO - 09/05/2018 HISTORY: sinusitis TECHNIQUE: CT maxillofacial without contrast COMPARISON: None. FINDINGS: There is mucosal thickening along the posterior medial right maxillary sinus. The remainder of the paranasal sinuses appear clear. There is no air-fluid level identified. IMPRESSION: Mucosal thickening along posterior medial right maxillary sinus. The remaining of the paranasal sinuses appear clear. Electronically signed by Cristhian Cortez 09/05/2018 6:22 PM
[2018-09-05] MEDS: ZYVOX PO SCH (19:13)
[2018-09-05] MEDS: MAXIPIME 2 GM in NS 100 ML IV SCH (19:13)
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
[2018-09-05] MEDS: LIPITOR PO SCH (21:58)
--- NOTE | 2018-09-06 01:17 | PULMONOLOGY PROGRESS NOTE ---
DATE: 09/05/2018 SUBJECTIVE: The patient reports he feels better. He denies shortness of breath today. He does report fatigue. He has not had any sputum production during this hospitalization. OBJECTIVE: The patient has been afebrile this entire hospital stay. Blood pressure 106/81, heart rate 73, respiratory rate 16, oxygen saturation 100% on room air.HEENT: Pupils are equal and reactive. Oropharynx is clear. Neck: Supple. Chest: Reveals decreased breath sounds left base. Cardiac: S1-S2. Abdomen: Soft and without hepatosplenomegaly. Extremities: Without edema. LABORATORIES: CT scan of the sinuses are consistent with chronic sinusitis of the right maxillary sinus. Echocardiogram reveals normal LV function, mild mitral regurgitation, possible component of impaired left ventricular relaxation with diastolic dysfunction. X-ray which is a portable exam reveals stable volume loss in the left hemithorax. The radiologist indicates increasing right-sided infiltrates but this is a portable exam and likely related to technique. IMPRESSION: An 83-year-old with pleural effusions, fatigue, immunoglobulin deficiency, myelodysplastic syndrome with multiple myeloma. Clinically he is improving. The patient has chronic changes in the left hemithorax associated with prior exudative effusion requiring drainage. Prior evaluations of effusions on the right side were transudative in nature. The patient has had no signs or symptoms to suggest an active pneumonia despite radiographic reading. He does have a pleural effusion which has been present intermittently in the past. RECOMMENDATIONS: 1. Continue anticoagulation for history of deep vein thrombosis. 2. Two-view chest x-ray tomorrow. 3. Antibiotics per infectious disease but I am not convinced that he has an active infection. cc: Mitchell Kenny MD
[2018-09-06] MEDS: XOPENEX NEB INH SCH ×4 (03:45→22:50)
[2018-09-06] MEDS: PROTONIX IV SCH ×2 (05:55→17:12)
[2018-09-06] MEDS: ZYVOX PO SCH ×2 (05:55→17:12)
[2018-09-06] MEDS: MAXIPIME 2 GM in NS 100 ML IV SCH ×2 (06:09→17:12)
[2018-09-06 06:14] LABS: CALCIUM 7.4 mg/dL (8.8-10.2); CREATININE 1.2 mg/dL (0.7-1.2); POTASSIUM 4.5 mmol/L (3.5-5.1)
--- NOTE | 2018-09-06 07:07 | Diag Imaging Result Doc PS360 ---
EXAM: CHEST-2 VIEWS 09/06/2018 HISTORY: abnormal exam TECHNIQUE: Two views the chest COMMENT: Compared to 09/05/2018 the interstitial pulmonary edema seen over the right lower lobe has improved. Pleural and parenchymal fibrosis and old posttraumatic changes in the left hemithorax are stable in appearance. There is still some pleural fluid on the right. IMPRESSION: Improved pulmonary edema. Electronically signed by Quincy Rizo 09/06/2018 7:05 AM
[2018-09-06] MEDS: KLOR-CON PO SCH (09:03)
[2018-09-06] MEDS: PERIDEX MT SCH ×2 (09:03→22:36)
[2018-09-06] MEDS: XARELTO PO SCH (15:24)
--- NOTE | 2018-09-06 16:02 | INFECTIOUS DISEASE PROGRESS NO ---
DATE: 09/06/2018 PRESENT ILLNESS: The patient has a bibasilar pneumonia. On CT scan of the sinuses, he had a small amount of mucosal involvement of the maxillary sinus. MEDICATIONS: The patient is receiving a combination of Zyvox and cefepime. PHYSICAL EXAMINATION: Vital Signs: Temperature is 98.6, pulse 118, respirations 15, blood pressure 136/79. Generally, this is a somewhat ill-appearing elderly male. He is in no acute distress. Head, eyes, ears, nose and throat: HE has decreased hearing. He does not have any white patches on his tongue. He can hear my spoken words and see near objects. Lungs: There were a few bibasilar rales. Cardiovascular: Heart rate is regular. Abdomen is soft and nontender. Neurologic: The patient is alert. He was walking in the halls. There is no tremor. Integument: No rash noted. LABORATORY DATA AND X-RAY: CBC today shows a white count of 10,400. Hemoglobin 9.4, and platelet count 321,000. Creatinine is 1.7. GFR is 40. The CT scan of the sinuses showed as mentioned above, a small amount of maxillary sinus mucosal swelling. ASSESSMENT AND PLAN: I think the patient does have a bibasilar pneumonia and really not much of a sinusitis. My plan is to get a non-contrasted CT scan so that we can differentiate if the patient has pneumonia or pleural fluid or fibrosis. For now, I am going to continue his current antibiotics. COMORBIDITIES: He has multiple myeloma, myelodysplastic syndrome, prostate cancer, colon cancer, and transient ischemic attacks. cc: Corbin Magallanes MD
--- NOTE | 2018-09-06 16:37 | Diag Imaging Result Doc PS360 ---
EXAM: CT THORAX W/O CONTRAST INDICATION: pneumonia TECHNIQUE: This exam was performed using automated exposure control, adjustment of mA or kV according to patient size, and/or use of iterative reconstruction technique. COMPARISON: 01/04/2017 FINDINGS: There is a small to moderate-sized right pleural effusion with right basilar atelectasis. There is stable trace loculated fluid at the left lung base. There is stable pleural thickening at the left lung base as well as fibrotic changes. There is a stable masslike density at the left lung base measuring up to 4.6 x 3.0 cm that probably represents chronic round atelectasis. There is also mild stable scarring in the right middle lobe. In addition to the fibrosis, there are very vague patchy infiltrates that are seen throughout both lungs but with a mid and lower lung zone predominance. This suggests superimposed pneumonitis, possibly infectious. There is a new lung nodule in the left upper lobe on image 32 of series 3 measuring up to 7 mm. There is a another 4 mm nodule in the right lower lobe on image 90 of series 3 that is not identified previously. There are a few other opacities that are less well-defined but are vaguely nodular. These certainly may represent inflammatory nodules. However, follow-up is recommended based on Fleischner Society criteria to assure stability or resolution. The heart is not enlarged. There are calcified lymph nodes in the mediastinum and arie indicating prior granulomatous disease. Limited views of the upper abdomen are essentially unremarkable. There are several old rib fractures on the left. IMPRESSION: 1.Small to moderate-sized right pleural effusion and trace loculated left effusion as described. 2.Stable masslike opacity at the left lung base that probably represents chronic round atelectasis. 3.Patchy fibrosis bilaterally mainly at the lung bases. 4.Superimposed vague infiltrates that were not present previously suggesting nonspecific pneumonitis. 5.A few new subcentimeter lung nodules that are nonspecific. Follow-up is recommended based on Fleischner Society criteria. Electronically signed by Melquiades Madison 09/06/2018 4:35 PM
[2018-09-06] MEDS ORDERED: LASIX IV ONE (17:36)
--- NOTE | 2018-09-06 17:42 | PROGRESS NOTE ---
DATE: 09/06/2018 SUBJECTIVE: Patient resting in bed, not in any obvious distress. OBJECTIVE: Vital Signs: As follows: Temperature 98, pulse 81, blood pressure 104/61, oxygen saturation is 97%. HEENT: Atraumatic, normocephalic. Cardiovascular: S1, S2. Respiratory: Has evidence of good air entry bilaterally. Abdomen: Soft, nontender. No masses felt. Extremities: No evidence of edema. Central Nervous System: No obvious focal deficit noted. LABS: Sodium is 138, potassium 4.5, chloride 100, bicarb 25, BUN is 12, creatinine 1.2. ASSESSMENT AND PLAN: 1. Probable pneumonia. Continue antibiotics. 2. Chronic kidney disease. Follow up on renal function. Avoid nephrotoxic agents. 3. History of colon cancer. Aware. 4. Multiple myeloma. Oncology following. 5. Gastroesophageal reflux disease, continue PPI. 6. Left lower extremity DVT. Continue anticoagulation. 7. Thrombocytopenia. Follow up on platelet count. 8. Deconditioning. PT recommended. 9. Bilateral pleural effusion as well as mass-like lesion left lung base. Pulmonology on board. cc: Sammy Euceda MD [facility]
[2018-09-06] MEDS: LIPITOR PO SCH (22:36)
[2018-09-07] MEDS: XOPENEX NEB INH SCH ×3 (03:38→17:40)
--- NOTE | 2018-09-07 04:17 | PULMONOLOGY PROGRESS NOTE ---
DATE: 09/06/2018 SUBJECTIVE: The patient is awake, alert and conversant. He denies cough, he denies sputum production, he denies fevers or chills. OBJECTIVE: Vital Signs: The patient has been afebrile for the last 24 hours. Blood pressure 96/75, heart rate 83, respiratory rate 18, oxygen saturation 99% on room air. HEENT: Pupils are equal and reactive. Oropharynx is clear. Neck: Supple. Chest: Reveals diminished breath sounds in both lung bases. Cardiac: S1 and S2. Abdomen: Soft without hepatosplenomegaly. Extremities: Without edema. LABORATORIES: CT scan of the thorax is reviewed, small to moderate effusion right side, with trace effusion on the left. The patient has an area likely representing round atelectasis at the left base which has not changed in 20 months. He also has minimal patchy infiltrates. There is no CBC. Chemistries are within normal limits. 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 Clinically he is without signs or symptoms of infection. RECOMMENDATION: 1. Continue diuretics as tolerated. 2. Antibiotics per Infectious Disease. cc: Mitchell Kenny MD
[2018-09-07] MEDS: SODIUM CHLORIDE 0.9% INJ SCH ×2 (07:05→16:54)
[2018-09-07] MEDS: ZYVOX PO SCH ×2 (07:05→16:54)
[2018-09-07] MEDS: MAXIPIME 2 GM in NS 100 ML IV SCH ×2 (07:05→17:43)
[2018-09-07] MEDS: PROTONIX IV SCH ×2 (07:05→16:54)
[2018-09-07] MEDS: KLOR-CON PO SCH (09:04)
[2018-09-07] MEDS: PERIDEX MT SCH (09:04)
--- NOTE | 2018-09-07 13:07 | PROGRESS NOTE ---
DATE: 09/07/2018 SUBJECTIVE: The patient is resting comfortably in bed. Not in any obvious distress. OBJECTIVE: Vital signs: Temperature is 98 degrees, pulse is 80, respiratory rate 18, blood pressure 121/70, oxygen saturation is 98%. HEENT: Atraumatic, normocephalic. Cardiovascular: S1, S2. Respiratory system: Has evidence of good air entry bilaterally. Abdomen: Soft, nontender. No masses felt. Extremities: No evidence of edema. Central nervous system: No obvious focal deficits noted. LABS: None today. ASSESSMENT AND PLAN: 1. Probable pneumonia. Continue antibiotics. 2. Bilateral pleural effusion as well as masslike lesion left lung base. Pulmonary team on board. 3. Chronic kidney disease. Follow up on renal function. Avoid nephrotoxic agents. 4. History of colon cancer. Aware. 5. Multiple myeloma. Oncology following. 6. Gastroesophageal reflux disease. Continue proton pump inhibitor. 7. Left lower extremity. DVT. Continue anticoagulation. 8. Thrombocytopenia. Follow up on platelet count. 9. Deconditioning. PT recommended. 10. Disposition: Patient will be going home with home health services when ready for discharge. cc: Sammy Euceda MD
[2018-09-07] MEDS: XARELTO PO SCH (15:20)
[2018-09-07 16:23] VITALS: BP 114/70
--- NOTE | 2018-09-08 06:17 | INFECTIOUS DISEASE PROGRESS NO ---
DATE: 09/07/2018 PRESENT ILLNESS: The patient has a bibasilar pneumonia, and also on CT scan he had a small amount of maxillary sinusitis. MEDICATIONS: The patient is receiving Zyvox and cefepime. PHYSICAL EXAMINATION: Vital Signs: Temperature is 98 degrees, pulse 80, respirations 14, blood pressure 121/70. General: This is a ill-appearing elderly male, he is in no acute distress. Head/eyes/ears/nose/throat: He can see near objects. He has decreased hearing. He does not have any white patches on his tongue. Neck: No stiffness. Lungs: There were a few bibasilar rales. Cardiovascular: Heart rate is regular. Abdomen: Soft and nontender. Neurologic: The patient is alert. He is able to walk. There is no tremor. Integument: No rash. LAB AND X-RAY: CT scan of the chest shows bilateral pleural effusions, fibrosis and pneumonitis. The patient's immunoglobulin levels show an IgG level of 1066, IgA is 36. Blood cultures are negative. There is no other new lab. ASSESSMENT AND PLAN: The patient has a combination of bibasilar pneumonia and sinusitis. I plan on sending the patient home on a combination of Augmentin and ciprofloxacin. I plan to have the patient return to my office in about 10-14 days for examination and get x-rays of the sinuses and chest. COMORBIDITIES: The patient has multiple myeloma, myelodysplastic syndrome, prostate cancer, colon cancer, and transient ischemic attacks. I should mention that the prostate cancer and colon cancer were in the past. cc: Corbin Magallanes MD
--- NOTE | 2018-09-24 08:57 | DISCHARGE SUMMARY ---
ADMISSION DATE: 09/02/2018 DISCHARGE DATE: 09/07/2018 PRINCIPAL DIAGNOSIS: Pneumonia. SECONDARY DIAGNOSES: 1. Bilateral pleural effusion, as well as a mass-like lesion in the left lung base. 2. Chronic kidney disease. 3. History of colon cancer. 4. History of multiple myeloma. 5. Gastroesophageal reflux disease. 6. Left lower extremity deep venous thrombosis. 7. Thrombocytopenia. DISCHARGE MEDICATIONS: 1. Augmentin 875 one twice a day as directed. 2. Ciprofloxacin 500 mg p.o. twice a day as directed. 3. Potassium chloride 20 mEq p.o. daily. 4. Xarelto 20 mg p.o. daily. 5. Atorvastatin 10 mg p.o. once a day. 6. Revlimid 5 mg p.o. daily. CONSULTATIONS DONE DURING THIS HOSPITAL STAY: 1. Dr. Sean Khalil, Hematology/Oncology. 2. Dr. Mitchell Kenny, Pulmonary. 3. Dr. Corbin Magallanes, Infectious Disease. PROCEDURES DONE DURING THIS HOSPITAL STAY: 1. Maxillofacial CT done on 09/05/2018. 2. Chest CT done on 09/06/2018. 3. Echocardiogram done on 09/05/2018. HOSPITAL COURSE: Mr. Elizabeth Bender is an 83-year-old male with a past history of multiple myeloma currently under treatment with Dr. Khalil. Also, he has a history of colon cancer as well as myelodysplastic syndrome and also recurrent pleural effusions. He presented to the emergency room with complaints of increased shortness of breath. Also, he had a nonproductive cough. X-ray of his chest showed small pleural effusions and a combination of fibrosis as well as a small infiltrate in the mid and lower left lung as well as emphysema. The patient was diagnosed as having probable pneumonia based on the chest x-ray findings, and he was started on antibiotics. He was seen by the Pulmonary Team and also was seen by the Hematology/Oncology Team with regards to hematologic/oncologic problems. Antibiotic management was done by Dr. Corbin Magallanes. PHYSICAL EXAMINATION: Vital Signs: During my evaluation on 09/07/2018, temperature was 98, pulse 80, respirations 18, blood pressure 121/70. Oxygen saturation is 98%. HEENT: Atraumatic, normocephalic. Cardiovascular: S1, S2. Respiratory system: Has evidence of good air entry bilaterally. Abdomen: Soft, nontender. No masses felt. Extremities: No evidence of edema. Central Nervous System: No obvious focal deficit noted. PLAN: The patient was subsequently discharged home on 09/07/2018 with plans to follow up with Dr. Corbin Magallanes and also to follow up with his primary care physician, Dr. Brayden Juarez. cc: Sammy Euceda MD
== END 2018-09-07 18:30 | disposition home or self-care (01) | DRG 194 ==
LOC: ED 10:54 → SUATTDRO 16:27 → 4N 16:27 → 3N 09-06 05:43
PROVIDERS: ATTEND Internal Medicine
CPT/HCPCS: 70486; 71010; 71020; 71035; 71045; 71046; 71250; 80048; 80053; 81001; 82550; 82607; 82746; 82784; 83735; 83880; 84100; 84443; 84484; 85025; 85610; 85730; 87040; 93005; 93306; 94640; 94761; 94799; 96365; 96375; 97163; 97530; 99285; A9270; C9113; J0456; J0692; J0696; J1940; J2405; J3475; S0164